=== PATIENT | male | born 1945 | race Caucasian/White ===

== ENCOUNTER 2022-04-29 06:58 | Day surgery (SDC) | payer MEDICARE ==
[~2022-04-29] VITALS: Ht 182.9 cm; Wt 56.7 kg
[~2022-04-29 06:58] MED LIST: CLONAZEPAM0.5 M1 PO; PROTONIX20 M1 PO; TRAMADOL HYDROC50 M1 PO; TRAZODONE100 MG PO
[2022-04-29 10:01] VITALS: BP 113/74
== END 2022-04-29 09:55 | disposition home or self-care (01) ==
LOC: ENDO 06:58 → ORM 08:00 → ENDO 08:25 → ORM 12:00
PROVIDERS: ATTEND Surgery
PROC: 0DJD8ZZ Inspection of Lower Intestinal Tract, Via Natural or Artificial Opening Endoscopic (ICD-10-PCS; principal; 2022-04-29)
PROC: 0DB48ZX Excision of Esophagogastric Junction, Via Natural or Artificial Opening Endoscopic, Diagnostic (ICD-10-PCS; 2022-04-29)
DX: K57.51 Diverticulosis of both small and large intestine without perforation or abscess with bleeding (principal); K64.8 Other hemorrhoids; K44.9 Diaphragmatic hernia without obstruction or gangrene; F17.210 Nicotine dependence, cigarettes, uncomplicated

== ENCOUNTER 2023-11-03 15:29 | Emergency (ER) | payer MEDICARE ==
[~2023-11-03] VITALS: Ht 182.9 cm; Wt 60.7 kg
[~2023-11-03 15:29] MED LIST changes: +OMEPRAZOLE20 MG PO
[2023-11-03] MEDS ORDERED: POVIDONE IODINE 0.5 OZ/BTL TOP ONE (15:35)
[2023-11-03] MEDS ORDERED: Diph, Acellular Pertussis, Tet 0.5 ML/VIAL (Tdap) SDV IM ONE (15:35)
[2023-11-03] MEDS ORDERED: NEOMYCIN-BACITRACIN-POLYMYXIN 0.5 GM/PAK PAK TOP ONE (15:35)
[2023-11-03] MEDS ORDERED: LIDOCAINE W/ EPINEPHRINE 10 MG/ML INJ STI ONE (15:35)
[2023-11-03 15:36] VITALS: BP 134/72
[2023-11-03 15:45] VITALS: BP 129/67
[2023-11-03 16:00] VITALS: BP 129/71
[2023-11-03] MEDS ORDERED: KEFLEX500 MG PO (16:03)
[2023-11-03 16:15] VITALS: BP 130/67
[2023-11-03 16:30] VITALS: BP 137/77
[2023-11-03 16:34] VITALS: BP 137/77
== END 2023-11-03 16:48 | disposition home or self-care (01) ==
LOC: ED 15:29
PROC: 0HQ0XZZ Repair Scalp Skin, External Approach (ICD-10-PCS; principal; 2023-11-03)
DX: S01.01XA Laceration without foreign body of scalp, initial encounter (principal); W20.8XXA Other cause of strike by thrown, projected or falling object, initial encounter

== ENCOUNTER 2023-11-13 09:27 | Emergency (ER) | payer MEDICARE ==
[~2023-11-13] VITALS: Ht 180.3 cm; Wt 59.0 kg
[~2023-11-13 09:27] MED LIST changes: +KEFLEX500 MG PO
[2023-11-13 09:31] VITALS: BP 140/70
[2023-11-13 09:40] VITALS: BP 111/65
[2023-11-13 09:45] VITALS: BP 122/64
[2023-11-13 09:54] VITALS: BP 122/64
== END 2023-11-13 10:07 | disposition home or self-care (01) ==
LOC: ED 09:27
DX: S01.81XD Laceration without foreign body of other part of head, subsequent encounter (principal); F17.210 Nicotine dependence, cigarettes, uncomplicated; X58.XXXD Exposure to other specified factors, subsequent encounter

== ENCOUNTER 2024-01-16 18:17 | Emergency (ER) | payer MEDICARE ==
[~2024-01-16] VITALS: Ht 180.3 cm; Wt 58.0 kg
[2024-01-16] VITALS (9 sets, daily range): BP systolic 102–122; BP diastolic 51–76
[2024-01-16] MEDS ORDERED: SODIUM CHLORIDE 0.9% 1,000 ML IV ONE (18:50)
[2024-01-16 19:06] LABS: BASO% 0.4 % (0-3); HEMATOCRIT 41.3 % (39.0-50.0); HEMOGLOBIN 13.5 g/dl (14.0-18.0); IMMATURE GRANULOCYTES 0.2 % (0.0-5.0); LYMPH% 7.4 % (15-41); MEAN CELL VOLUME 105.9 fL CALC (80.0-100.0); MEAN CORPUSCULAR HGB 34.6 pG CALC (26.0-32.0); MEAN CORPUSCULAR HGB CONC 32.7 g/dL CAL (32.0-36.0); MONO% 4.3 % (2-13); NEUT# 7.31 thou/uL (1.82-7.42); NEUT% 87.7 % (42-76); RED BLOOD COUNT 3.9 mill/uL (4.70-6.10); RED CELL DISTRI WIDTH 11.7 % (11.5-15.5)
[2024-01-16 19:18] LABS: BILIRUBIN, TOTAL 0.4 mg/dL (0.2-1.3); CREATININE 0.8 mg/dL (0.7-1.3); POTASSIUM 4.7 mmol/l (3.5-5.1); TOTAL PROTEIN 6.8 g/dL (6.3-8.2)
[2024-01-16] MEDS ORDERED: HALOPERIDOL LACTATE 5 MG/ML SDV IV ONE (19:20)
[2024-01-16 19:32] LABS: URINE BILIRUBIN - DIPSTICK Negative (NEGATIVE); URINE BLOOD DIPSTICK Negative (NEGATIVE); URINE GLUCOSE - DIPSTICK Negative (NEGATIVE); URINE KETONE Negative (NEGATIVE); URINE LEUK ESTERASE Negative (NEGATIVE); URINE NITRITE - DIPSTICK Negative (Negative); URINE PH 5.5 (4.5-8.0); URINE PROTEIN - DIPSTICK Negative (NEG-TRACE); URINE SPECIFIC GRAVITY <=1.005; URINE UROBILINOGEN - DIPSTICK 0.2 E.U./dL (0.2)
[2024-01-16 19:34] LABS: URINE COLOR Yellow
== END 2024-01-16 21:02 | disposition home or self-care (01) ==
LOC: ED 18:17
PROVIDERS: Nurse Practitioner Family
PROC: 0HQ0XZZ Repair Scalp Skin, External Approach (ICD-10-PCS; principal; 2024-01-16)
DX: S01.01XA Laceration without foreign body of scalp, initial encounter (principal); F10.129 Alcohol abuse with intoxication, unspecified; W01.0XXA Fall on same level from slipping, tripping and stumbling without subsequent striking against object, initial encounter; Y90.8 Blood alcohol level of 240 mg/100 ml or more

== ENCOUNTER 2024-01-25 13:36 | Emergency (ER) | payer MEDICARE ==
[~2024-01-25] VITALS: Ht 180.3 cm; Wt 56.0 kg
[2024-01-25 14:49] VITALS: BP 129/76
[2024-01-25 14:54] VITALS: BP 129/76
== END 2024-01-25 14:57 | disposition home or self-care (01) ==
LOC: ED 13:36
DX: S01.01XD Laceration without foreign body of scalp, subsequent encounter (principal); X58.XXXD Exposure to other specified factors, subsequent encounter; Z72.0 Tobacco use